=== PATIENT | female | born 1995 | race Two or more races ===

== ENCOUNTER 2022-03-19 23:14 | Emergency (ER) | payer SELFPAY ==
[~2022-03-19] VITALS: Ht 154.9 cm; Wt 60.8 kg
[2022-03-19] MEDS ORDERED: IV NS 0.9% 1,000 ML BAG IV ONE (23:30)
[2022-03-19] MEDS ORDERED: METOCLOPRAMIDE HCL 10 MG/2 ML VIAL IV ONE (23:30)
[2022-03-19] MEDS ORDERED: SUMATRIPTAN SUCCINATE 6 MG/0.5 ML VIAL SQ ONE ×2 (23:30→23:31)
[2022-03-19] MEDS ORDERED: METOCLOPRAMIDE HCL 10 MG/2 ML VIAL ONE (23:31)
--- NOTE | 2022-03-19 23:42 | NUR ---
BIBSELF C/O L SIDED HEADACHE AND NUMBNESS X 1 HR. WOKE UP WITH HEADACHE @6 AM , RELIEVED WITH CAFFEINE AND EXCEDRINE. PAIN NOW RETURNED W/ WORSE SYMPTOMS. ADMITS TO DIZZY AND NAUSEA. PT IS ALERT AND ORIENTED. RR EVEN AND NON LABORED. CONNECTED TO MONITOR. LIGHTS TURNED OFF AND WARM BLANKET PROVIDED FOR COMFORT
--- NOTE | 2022-03-19 23:45 | NUR ---
WEIVER SIGNED BY PT
--- NOTE | 2022-03-19 23:45 | NUR ---
IV LINE ESTABLISHED, [id number]
--- NOTE | 2022-03-19 23:50 | NUR ---
PT TAKEN FOR CT SCAN
--- NOTE | 2022-03-20 00:35 | NUR ---
Patient discharged to home in stable condition. Written and verbal after care instructions given. Patient verbalizes understanding of instruction.
[2022-03-20 00:36] VITALS: BP 121/78
== END 2022-03-20 00:36 | disposition home or self-care (01) ==
LOC: ER 23:16
DX: G43.909 Migraine, unspecified, not intractable, without status migrainosus (principal); Z88.8 Allergy status to other drugs, medicaments and biological substances
CPT/HCPCS: 99285; 96374; 70450; 96361; 96372; J3030; J2765; J7030